=== PATIENT | female | born 1995 | race African-American/Black ===

== ENCOUNTER 2022-08-10 17:33 | Emergency (ER) | payer OTHER, SELFPAY ==
--- NOTE | 2022-08-10 18:54 | ED_ITS ---
HPI - General Adult General Chief complaint: Urogenital-Female Stated complaint: BV treatment Time Seen by Provider: 08/10/22 19:29 Related Data Previous Rx's Medication Instructions Recorded fluconazole 150 mg tablet 150 mg PO Q3D 2 doses #2 tabs 08/10/22 metronidazole 500 mg tablet 500 mg PO BID 7 days #14 tabs 08/10/22 Allergies Allergy/AdvReac Type Severity Reaction Status Date / Time No Known Allergies Allergy Verified 08/10/22 18:59 [facility] Social History Social History Advance Directives: No Advance Directives Information Provided: No Physical Exam ED Vital Signs: Vital Signs - 24 hr 08/10/22 19:00 Temperature 97.6 F Pulse Rate 78 Respiratory Rate 16 Blood Pressure 122/82 Pulse Oximetry 100 Oxygen Delivery Method Room Air BMI result Body Mass Index 36.0 Course Course Course Narrative: RME: 27yo F w/PMHx HSV c/o brownish vaginal discharge x1 week s/p taking Abx for dental infection. Suspected she had yeast infection but took Diflucan w/o relief. Also took her HSV meds w/o relief. Denies vag bleeding, lesions, abd pain or new sexual partners. is sexually active w/1 partner. Denies this feeling like her HSV. LMP 07/18/22 UA, STI testing ordered Full HPI, ROS and PE to be performed by primary ED provider. Discharge Plan Discharge Clinical Impression: Bacterial vaginosis, Yeast infection Patient Disposition: Home, Self-Care Instructions: Bacterial Vaginosis (ED) Additional Instructions: Take your medications as prescribed. If you were prescribed antibiotics today, it is important that you take your medication to their entirety, do not skip any doses, do not finish them early. Follow-up with your primary care provider this week. Return to the emergency department with new or worsening symptoms. Such as fevers, chills, chest pain, shortness of breath, nausea, vomiting, dizziness, headache, vision changes, lethargy In case of emergency call 911 Prescriptions: New metronidazole 500 mg tablet 500 mg PO BID 7 Days Qty: 14 0RF fluconazole 150 mg tablet 150 mg PO Q3D Qty: 2 0RF Referrals: Vaishnavi Maki MD [Primary Care Provider] - 2 days Stand Alone Forms: Work/School Release
[2022-08-10 19:00] VITALS: BP 122/82; PULSE 78; RESP 16; TEMP 36.4; O2SAT 100; BMI 36.0
--- NOTE | 2022-08-10 20:20 | ED_ITS ---
HPI - Female Genitourinary General Chief complaint: Urogenital-Female Stated complaint: BV treatment Time Seen by Provider: 08/10/22 19:29 Source: patient Mode of arrival: ambulatory Limitations: no limitations History of Present Illness HPI Narrative: 27 year old female with PMH of HSV and yeast infections presents to the ED with vaginal discharge and odor for 3 weeks. Patient reports she stared an OTC vaginal wash with no improvement of symptoms. Patient denies pruritus and endorses pins and needles/burning sensation on the external genitalia. Patient denies radiation of discomfort to the flanks. Patient reports she has had similar symptoms before with yeast infections, but the odor is different/fishy and persistent. Denies and STD and STI concerns Related Data Previous Rx's Medication Instructions Recorded fluconazole 150 mg tablet 150 mg PO Q3D 2 doses #2 tabs 08/10/22 metronidazole 500 mg tablet 500 mg PO BID 7 days #14 tabs 08/10/22 Allergies Allergy/AdvReac Type Severity Reaction Status Date / Time No Known Allergies Allergy Verified 08/10/22 18:59 Review of Systems Review of Systems: Constitutional : No Weight loss, No Fever, No Chills, No Fatigue, No Malaise ENT/Mouth : No sore throat, No Rhinorrhea Eyes: No Eye Pain, No Swelling, No Redness Cardiovascular : No Chest Pain, No SOB, No Dyspnea on Exertion, No Orthopnea, No Edema, No Palpitations Respiratory : No Cough, No Sputum, No Wheezing Gastrointestinal : No Nausea, No Vomiting, No Diarrhea, No Constipation, No abdominal Pain, No Hematochezia, No Melena Genitourinary : No Dysuria, No Urinary Frequency, No Hematuria, + vaginal discharge Musculoskeletal : No joint pain, No Myalgias, No Joint Swelling Skin : No Skin Lesions, No rash Neuro : No Weakness, No Numbness, No Dizziness, No Headache Psych : No Anxiety/Panic, No Depression All other systems reviewed and are negative Yes all other systems are reviewed and are negative [facility] Past Medical History Attestation statement: The following information was validated with the patient. Source: old records reviewed and nursing notes reviewed Social History Social History Advance Directives: No Advance Directives Information Provided: No Physical Exam Vital Signs: Vital Signs: Last Vital Signs Temp 97.6 F 08/10/22 19:00 Pulse 78 08/10/22 19:00 Resp 16 08/10/22 19:00 BP 122/82 08/10/22 19:00 Pulse Ox 100 08/10/22 19:00 O2 Del Method Room Air 08/10/22 19:00 BMI result Body Mass Index 36.0 vss Appearance: Alert.? Oriented X3.? No acute distress.? Head: Normocephalic, atraumatic, no step-offs or deformities Eyes: Pupils equal, round and reactive to light.? Neck: Normal inspection.? Neck supple.? CVS: Normal heart rate and rhythm.? Pulses normal.? Respiratory: No respiratory distress.? Breath sounds normal.? Abdomen: Soft and nontender.? Skin: Skin warm and dry.? Normal skin color.? Normal skin turgor.? Extremities: No lower extremity edema.? No calf ttp. 5/5 strength to bilateral upper and lower extremities Neuro: Oriented X 3.? No motor deficit.? No sensory deficit. CN 2-12 intact Course Reevaluation(s) Reevaluation #1: Will treat with metronidazole, will also send Diflucan to her pharmacy. Educated patient on diagnosis and treatment plan, answered all question, patient verbalizes understanding. At this time patient will be discharged home, advised to return with new or worsening symptoms. Educated on worrisome signs and symptoms and when to return. At this time I feel comfortable discharge home. Time: 20:30 Medical Decision Making Medical Decision Making [facility] Narrative: 2015 27-year-old female presents requesting treatment for BV and yeast, patient reports that feels like she has both of them at this time. Has tried [id number] remedies with little to no relief. Will have an appointment with OBGYN in November where she will have her annual Pap smear. Physical exam benign. No abdominal tenderness. Patient does not want a pelvic exam at this time and is followed by OBGYN. Plan patient will self swab for BV. She does not want STD testing. Unlikely intra-abdominal etiologies no abdominal tenderness. No signs of acute abdomen, ovarian torsion, ectopic . Plan at this time treatment for BV and yeast. Differential Diagnosis Differential Diagnoses: The differential diagnosis associated with the presenta tion includes Plan patient will self swab for BV. She does not want STD testing. Unlikely intra-abdominal etiologies no abdominal tenderness. No signs of acute abdomen, ovarian torsion, ectopic . Admission/Observation Consideration of admission/observation: Escalation of care including admission/observation considered Unlikely Lab Data MDM Lab Attestation statement: I reviewed the patient's lab results. Core Measures AMI core measures followed: Yes Measure exclusions: not indicated Discharge Plan Discharge Clinical Impression: Bacterial vaginosis, Yeast infection Patient Disposition: Home, Self-Care Instructions: Bacterial Vaginosis (ED) Additional Instructions: Take your medications as prescribed. If you were prescribed antibiotics today, it is important that you take your medication to their entirety, do not skip any doses, do not finish them early. Follow-up with your primary care provider this week. Return to the emergency department with new or worsening symptoms. Such as fevers, chills, chest pain, shortness of breath, nausea, vomiting, dizziness, headache, vision changes, lethargy In case of emergency call 911 Prescriptions: New metronidazole 500 mg tablet 500 mg PO BID 7 Days Qty: 14 0RF fluconazole 150 mg tablet 150 mg PO Q3D Qty: 2 0RF Referrals: Vaishnavi Maki MD [Primary Care Provider] - 2 days Stand Alone Forms: Work/School Release
[2022-08-11 10:20] LABS: BV Int Neg Control Negative (Negative); BV Int Pos Control Positive (Positive)
== END 2022-08-11 08:19 | disposition home or self-care (01) ==
PROVIDERS: Physician Assistant; Emergency Provider Emergency Medicine; PCP Internal Medicine
DX: N76.0 Acute vaginitis (principal); B37.9 Candidiasis, unspecified; Z79.899 Other long term (current) drug therapy
CPT/HCPCS: 87480; 87510; 87660; 99282; 99283